=== PATIENT | female | born 1960 | race African-American/Black ===

== ENCOUNTER 2017-09-16 11:02 | Day surgery (SDC) | payer OTHER ==
[2017-09-16] MEDS ORDERED: PROPOFOL 40 ML (13:12)
[2017-09-16] MEDS ORDERED: LIDOCAINE 2% (SDV) 5 ML INJ (13:12)
== END 2017-09-16 16:18 | disposition home or self-care (01) ==
LOC: GIL 11:02
DX: K29.70 Gastritis, unspecified, without bleeding (principal); Z79.82 Long term (current) use of aspirin
CPT/HCPCS: 43239; 87081

== ENCOUNTER 2017-10-10 18:23 | Emergency (ER) | payer OTHER ==
[2017-10-10] MEDS: KETOROLAC 15 MG INJ IM (21:34)
[2017-10-10 21:40] LABS: ADD UMIC NO; UR ASCORBIC ACID NEGATIVE (NEGATIVE); UR BILIRUBIN (Dip) NEGATIVE (NEGATIVE); UR BLOOD (Dip) NEGATIVE (NEGATIVE); UR CLARITY CLEAR (CLEAR); UR COLOR YELLOW (YELLOW); UR GLUCOSE (Dip) NEGATIVE (NEGATIVE); UR KETONES (Dip) NEGATIVE (NEGATIVE); UR LEUKOCYTE ESTERASE (Dip) NEGATIVE Leu/ul (NEGATIVE); UR NITRITE (Dip) NEGATIVE (NEGATIVE); UR TOTAL PROTEIN (Dip) NEGATIVE (NEGATIVE); UR UROBILINOGEN (Dip) NEGATIVE (NEGATIVE)
== END 2017-10-11 00:21 | disposition home or self-care (01) ==
LOC: FTE 10-11 00:21
DX: S39.92XA Unspecified injury of lower back, initial encounter (principal); W10.9XXA Fall (on) (from) unspecified stairs and steps, initial encounter; Y92.9 Unspecified place or not applicable
CPT/HCPCS: 72125; 72131; 81003; 96372; 99285-25

== ENCOUNTER 2017-10-17 18:26 | Emergency (ER) | payer OTHER ==
[2017-10-17] MEDS: ACETAMINOPHEN 325 MG TAB PO (21:51)
== END 2017-10-18 | disposition home or self-care (01) ==
LOC: FTE 10-18
DX: S99.922A Unspecified injury of left foot, initial encounter (principal); W20.8XXA Other cause of strike by thrown, projected or falling object, initial encounter; Y92.9 Unspecified place or not applicable
CPT/HCPCS: 73610; 73630-LT; 99283-25

== ENCOUNTER 2018-04-23 19:59 | Emergency (ER) | payer OTHER | END 2018-04-23 23:13 | disposition home or self-care (01) | LOC: FTE 19:59 | DX: J30.9 Allergic rhinitis, unspecified (principal); R40.2412 Glasgow coma scale score 13-15, at arrival to emergency department | CPT/HCPCS: 71045; 99283-25 ==

== ENCOUNTER 2018-05-14 21:32 | Emergency (ER) | payer OTHER ==
[2018-05-14 22:55] LABS: ADD MAN DIFF? NO
[2018-05-14 23:00] LABS: BASOPHILS % 0.6 % (0.0-2.0); EOSINOPHILS # 0.2 10^3/ul (0.0-0.5); EOSINOPHILS % 3.6 % (0.0-7.0); HEMATOCRIT 39.8 % (37.0-47.0); HEMOGLOBIN 13.2 g/dl (12.0-16.0); LYMPHOCYTES # 1.5 10^3/ul (0.8-2.9); LYMPHOCYTES % 31.9 % (15.0-51.0); MEAN CORPUSCULAR HEMOGLOBIN 28.5 pg (29.0-33.0); MEAN CORPUSCULAR HGB CONC 33.2 g/dl (32.0-37.0); MEAN PLATELET VOLUME 10.8 fl (7.4-10.4); MONOCYTE # 0.3 10^3/ul (0.3-0.9); MONOCYTES % 7.3 % (0.0-11.0); NEUTROPHIL # 2.6 10^3/ul (1.6-7.5); NEUTROPHILS % 56.4 % (39.0-77.0); PLATELET COUNT 206 10^3/UL (140-415); RED BLOOD COUNT 4.63 10^6/ul (4.20-5.40); RED CELL DISTRIBUTION WIDTH 13.8 % (11.5-14.5)
[2018-05-14 23:00] LABS: WHITE BLOOD COUNT 4.7 10^3/ul (4.8-10.8)
[2018-05-14 23:14] LABS: ALANINE AMINOTRANSFERASE 14 IU/L (13-69); ALBUMIN 3.6 g/dl (3.3-4.9); ALBUMIN/GLOBULIN RATIO 1.16; ALKALINE PHOSPHATASE 91 IU/L (42-121); ANION GAP 14 (8-16); ASPARTATE AMINO TRANSFERASE 27 IU/L (15-46); BILIRUBIN,INDIRECT 0.3 mg/dl (0-1.1); BILIRUBIN,TOTAL 0.3 mg/dl (0.2-1.3); BLOOD UREA NITROGEN 18 mg/dl (7-20); CALCIUM 9.4 mg/dl (8.4-10.2); CARBON DIOXIDE 27 mmol/L (21-31); CHLORIDE 107 mmol/L (97-110); CREATININE 0.79 mg/dl (0.44-1.00); GLUCOSE 107 mg/dl (70-220); LIPASE 323 U/L (23-300); POTASSIUM 4.5 mmol/L (3.5-5.1); SODIUM 143 mmol/L (135-144); TOTAL PROTEIN 6.7 g/dl (6.1-8.1)
[2018-05-14 23:26] LABS: TROPONIN-I 0.015 ng/ml (0.000-0.120)
[2018-05-14] MEDS: LIDOCAINE/MYLANTA 40 ML BTL PO (23:27)
[2018-05-14] MEDS: SOD CHLORIDE 0.9% 1,000 ML IV (23:28)
[2018-05-14] MEDS: ONDANSETRON INJ 8 MG in DEXTROSE 5% 50 ML IV (23:28)
[2018-05-15] MEDS: KETOROLAC 30 MG INJ IV (00:10)
[2018-05-15] MEDS: LIDOCAINE 2% JELLY 30 ML TOP (02:11)
== END 2018-05-15 02:48 | disposition home or self-care (01) ==
LOC: E/R 05-15 02:48
DX: M72.2 Plantar fascial fibromatosis (principal); K64.4 Residual hemorrhoidal skin tags; K21.9 Gastro-esophageal reflux disease without esophagitis; K59.00 Constipation, unspecified; M94.0 Chondrocostal junction syndrome [Tietze]
CPT/HCPCS: 36415; 71045; 74176; 80053; 83690; 84484; 85025; 93005; 96374; 96375; 99285-25

== ENCOUNTER 2018-10-08 23:27 | Emergency (ER) | payer OTHER ==
[2018-10-09 02:48] LABS: ADD MAN DIFF? NO
[2018-10-09 02:49] LABS: BASOPHILS % 0.2 % (0.0-2.0); EOSINOPHILS # 0.1 10^3/ul (0.0-0.5); EOSINOPHILS % 0.6 % (0.0-7.0); HEMATOCRIT 40.3 % (37.0-47.0); HEMOGLOBIN 13.3 g/dl (12.0-16.0); LYMPHOCYTES % 10.5 % (15.0-51.0); MEAN CORPUSCULAR HEMOGLOBIN 28.5 pg (29.0-33.0); MEAN CORPUSCULAR VOLUME 86.3 fl (82.0-101.0); MEAN PLATELET VOLUME 9.6 fl (7.4-10.4); MONOCYTE # 0.7 10^3/ul (0.3-0.9); MONOCYTES % 7.5 % (0.0-11.0); NEUTROPHIL # 7.3 10^3/ul (1.6-7.5); NEUTROPHILS % 80.8 % (39.0-77.0); PLATELET COUNT 183 10^3/UL (140-415); RED BLOOD COUNT 4.67 10^6/ul (4.20-5.40); RED CELL DISTRIBUTION WIDTH 13.5 % (11.5-14.5)
[2018-10-09] MEDS: KETOROLAC 30 MG INJ IV (02:49)
[2018-10-09] MEDS: SOD CHLORIDE 0.9% 1,000 ML IV (02:50)
[2018-10-09 03:08] LABS: ANION GAP 8 (5-13); BLOOD UREA NITROGEN 11 mg/dl (7-20); CALCIUM 9.4 mg/dl (8.4-10.2); CARBON DIOXIDE 26 mmol/L (21-31); CHLORIDE 110 mmol/L (97-110); CREATININE 0.62 mg/dl (0.44-1.00); Estimated GFR > 60 mL/min (>60); GLUCOSE 92 mg/dl (70-220); POTASSIUM 3.7 mmol/L (3.5-5.1); SODIUM 144 mmol/L (135-144)
[2018-10-09 03:19] LABS: TROPONIN-I < 0.012 ng/ml (0.000-0.120)
== END 2018-10-09 04:30 | disposition home or self-care (01) ==
LOC: E/R 23:27
DX: J22 Unspecified acute lower respiratory infection (principal); R09.1 Pleurisy
CPT/HCPCS: 36415; 71045; 80048; 84484; 85025; 87400; 93005; 96374; 99284-25